=== PATIENT | female | born 1995 | race Caucasian/White ===

== ENCOUNTER 2024-04-16 09:36 | Outpatient (REF) | payer BC, SELFPAY ==
--- OUTSIDE RECORDS SUMMARY | 2024-05-01 09:42 | XMS_ITS | CCD ---
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 [facility] [address] [place] Performed By: #### S YPHR #### [facility] [address] [place] URINE VOLUME 1003 mL Normal [facility] Comment on above: Performed By: #### C RCL #### [facility] [address] [place] Performed By: #### P TPHN #### [facility] [address] [place] Performed By: #### S YPHR #### [facility] [address] [place] COLLECTION PERIOD 24 hr Normal [facility] Comment on above: Performed By: #### C RCL #### [facility] [address] [place] Performed By: #### P TPHN #### [facility] [address] [place] Performed By: #### S YPHR #### [facility] [address] [place] Clinical Ethicson 10-13-2022 Clinical Ethics Active Problems 1. Donor of kidney for transplant (V59.4) (Z52.4) Impression Living donor advocate report: I spoke with Ms. Narayan this afternoon regarding her decision to donate a kidney to her sister. We discussed the following topics: a) evaluation and informed consent process b) knowledge of the surgical procedure, major risks and benefits (immediate and long-term; medical and psycho-social) c) evidence of ability to evaluate risks and benefits to both the recipient and herself d) reasons for choosing to donate e) voluntary nature of the donation and absence of coercion f) follow up requirements, including benefit and need She was also given the following information: a) the confidential nature of the interview b) the commitment of the donor advocate to the rights, interests, and well being of the potential donor c) opportunities for deciding not to donate and assurance of confidentiality if she wishes to withdraw consent d) access to the advocate team following the interview It is my impression that Ms. Narayan is adequately informed; her decision is voluntary. Signatures Electronically signed by : Carlos Cristobal, ; Oct 13 2022 1:01PM EST (Author) Normal [facility] Complete Blood Count + Diffe dara 10-13-2022 Basophils/100 WBC (Bld) 0.3 % 0.0 - 2.0 [facility] Work Phone: [phone] Erythrocyte distribution width (RBC) [Ratio] 12.4 % See Below [facility] [address] Work Phone: Comment on above: Reference Range: 11. 5 - 14.5 Hematocrit (Bld) [Volume fraction] 42.3 % See Below [facility] Work Phone: Comment on above: Reference Range: 36. 0 - 46.0 Hemoglobin (Bld) [Mass/Vol] 13.4 g/dL See Below [facility] [place] [address] Work Phone: Comment on above: Reference Range: 12. 0 - 16.0 Lymphocytes/100 WBC (Bld) 35.2 % See Below [facility] [place] [address] Work Phone: [phone] Comment on above: Reference Range: 13. 0 - 44.0 MCHC (RBC) [Mass/Vol] 31.7 g/dL below low threshold See Below [facility] [place] [address] Work Phone: Comment on above: Reference Range: 32. 0 - 36.0 MCV (RBC) [Entitic vol] 90 fL 80 - 100 [facility] [place] [address] Work Phone: [phone] Monocytes/100 WBC (Bld) 7.6 % 2.0 - 10.0 [facility] Work Phone: [phone] Neutrophils/100 WBC (Bld) 54.5 % See Below [facility] Work Phone: Comment on above: Reference Range: 40. 0 - 80.0 Platelets (Bld) [#/Vol] 289 10*3/uL 150 - 450 [facility] Work Phone: RBC (Bld) [#/Vol] 4.71 {x10E12/L} See Below [facility] Work Phone: [phone] Comment on above: Reference Range: 4.0 0 - 5.20 WBC (Bld) [#/Vol] 7.0 10*3/uL 4.4 - 11.3 [facility] Work Phone: [phone] Complete Blood Count + Differential 0.02 {x10E9/L} See Below [facility] Work Phone: [phone] Comment on above: Reference Range: 0.0 0 - 0.10 Complete Blood Count + Differential 0.16 {x10E9/L} See Below [facility] Work Phone: [phone] Comment on above: Reference Range: 0.0 0 - 0.70 Complete Blood Count + Differential 0.53 {x10E9/L} See Below [facility] Work Phone: [phone] Comment on above: Reference Range: 0.1 0 - 1.00 Complete Blood Count + Differential 2.46 {x10E9/L} See Below [facility] Work Phone: [phone] Comment on above: Reference Range: 1.2 0 - 4.80 Complete Blood Count + Differential 3.80 {x10E9/L} See Below [facility] Work Phone: [phone] Comment on above: Reference Range: 1.2 0 - 7.70 Complete Blood Count + Differential 2.3 % 0.0 - 6.0 [facility] [place] [employer] Work Phone: [phone] Complete Blood Count + Differential 0.1 % 0.0 - 0.9 [facility] [place] [facility] Work Phone: [phone] Comment on above: Immature Granulocyte Count (IG) includes promyelocytes, myelocytes and metamyelocytes but does not include bands. Percent differential counts (%) should be interpreted in the context of the absolute cell counts (cells/L). Complete Blood Count + Differential 0.0 {/100_WBC} 0.0-0.0 [facility] [employer] Work Phone: Creatinine Clearanceon 10-13 Creatinine (U) [Mass or moles/Vol] 87.1 mg/dL See Below [facility] [employer] Work Phone: Comment on above: Reference Range: 20. 0 - 320.0 Creatinine [Mass/Vol] 0.66 mg/dL See Below [facility] [place] [employer] Work Phone: [phone] Comment on above: Reference Range: 0.5 0 - 1.05 Creatinine Clearance 1003 mL [facility] Work Phone: [phone] Creatinine Clearance 24 {hr} [facility] [place] [address] Work Phone: [phone] Creatinine Clearance >90 >90 [facility] [place] [employer] Work Phone: [phone] Comment on above: CALCULATIONS OF PONCHO MATED GFR ARE PERFORMED USING THE 2020 CKD-EPI STUDY REFIT EQUATION WITHOUT THE RACE VARIABLE FOR THE IDMS-TRACEABLE CREATININE METHODS.https://jasn.asnjournals.org/content//ASN .6783105408 Creatinine Clearance 92 mL/min 70 - 125 [facility] [place] [address] Work Phone: DRUG SCREEN,URINE WITH REFLE X TO CONFIRMATIONon 10-13-2022 AMPHETAMINE SCREEN,U Negative Normal NEGATIVE [facility] Comment on above: Result Comment: CUTO FF LEVEL: 500 NG/ML Cross-reactivity has been reported with high concentrations of the following drugs: buproprion, chloroquine, chlorpromazine, ephedrine, mephentermine, fenfluramine, phentermine, phenylpropanolamine, pseudoephedrine, and propranolol. Performed By: #### C MV2 #### [facility] [address] [place] [address] BARBITURATES SCREEN,U Negative Normal NEGATIVE [facility] Comment on above: Result Comment: CUTO FF LEVEL: 200 NG/ML Performed By: #### C MV2 #### [facility] [address] [place] [address] BENZODIAZEPINES SCREEN,U Negative Normal NEGATIVE [facility] Comment on above: Result Comment: CUTO FF LEVEL: 200 NG/ML Performed By: #### C MV2 #### [facility] [address] [place] [address] CANNABINOIDS SCREEN,U Negative Normal NEGATIVE [facility] Comment on above: Result Comment: CUTO FF LEVEL: 50 NG/ML Performed By: #### C MV2 #### [facility] [address] [place] [address] COCAINE METABOLITE SCREEN,U Negative Normal NEGATIVE [facility] Comment on above: Result Comment: CUTO FF LEVEL: 150 NG/ML Performed By: #### C MV2 #### [facility] [address] [place] [address] DRUG SCREEN COMMENT SEE BELOW Normal [facility] Comment on above: Result Comment: Drug screen results are presumptive and should not be used to assess compliance with prescribed medication. Definitive confirmatory drug testing has been added to this sample for any positive screen result and will be reported separately. . Toxicology screening results are reported qualitatively. The concentration must be greater than or equal to the cutoff to be reported as positive. The concentration at which the screening test can detect an individual drug or metabolite varies. The absence of expected drug(s) and/or drug metabolite(s) may indicate non-compliance, inappropriate timing of specimen collection relative to drug administration, poor drug absorption, diluted/adulterated urine, or limitations of testing. For medical purposes only; not valid for forensic use. . Interpretive questions should be directed to the laboratory medical directors. Performed By: #### C MV2 #### [facility] [address] [place] [address] FENTANYL SCREEN,URINE Negative Normal NEGATIVE [facility] Comment on above: Result Comment: CUTO FF LEVEL: 5 NG/ML Performed By: #### C MV2 #### [facility] [address] [place] [address] METHADONE SCREEN,U Negative Normal NEGATIVE [facility] [place] Comment on above: Result Comment: CUTO FF LEVEL: 150 NG/ML The metabolite V-yhtsy-bsmkjabjxwqhwr (LAAM) is not detected by this method in concentrations that would be found in the urine of patients on LAAM therapy. Performed By: #### C MV2 #### [facility] [address] [place] [address] OPIATES SCREEN,U Negative Normal NEGATIVE [facility] [place] Comment on above: Result Comment: CUTO FF LEVEL: 300 NG/ML The opiate screen does not detect fentanyl, meperidine, or tramadol. Oxycodone is not consistently detected (refer to Oxycodone Screen, Urine result). Performed By: #### C MV2 #### [facility] [address] [place] [address] OXYCODONE SCREEN,U Negative Normal NEGATIVE [facility] [place] Comment on above: Result Comment: CUTO FF LEVEL: 100 NG/ML This test will accurately detect both oxycodone and oxymorphone. Performed By: #### C MV2 #### [facility] [address] [place] [address] PCP SCREEN,U Negative Normal NEGATIVE [facility] Comment on above: Result Comment: CUTO FF LEVEL: 25 NG/ML Cross-reactivity has been reported with dextromethorphan. Performed By: #### C MV2 #### [facility] [address] [place] [address] EBV PANELon 10-13-2022 VCA IGM ANTIBODY Negative Normal NEGATIVE [facility] [place] Comment on above: Performed By: #### C MV2 #### [facility] [address] [place] [address] EBV EA-D IGG ANTIBODY Negative Normal NEGATIVE [facility] Comment on above: Performed By: #### C MV2 #### [facility] [address] [place] [address] EBV INTERPRETATION SEE BELOW Normal [facility] [place] Comment on above: Result Comment: . EB V INTERPRETATION CHART . VCA-IGG VCA-IGM NA-IGG EA-IGG . PRIMARY ACUTE +/- +/- - +/- LATE ACUTE + +/- +/- +/- RECOVERING + - - + PREVIOUS INFECTION + - +/- - Performed By: #### C MV2 #### [facility] [address] [place] [address] EBV NA-1 IGG ANTIBODY Negative Normal NEGATIVE [facility] Comment on above: Performed By: #### C MV2 #### [facility] [address] [place] [address] VCA IGG ANTIBODY Negative Normal NEGATIVE [facility] [place] Comment on above: Performed By: #### C MV2 #### [facility] [address] [place] [address] Electrocardiogram 12 Leadon 10-13-2022 Electrocardiogram 12 Lead Ventricular Rate 65 Atrial Rate 65 P-R Interval 164 QRS Duration 78 Q-T Interval 396 QTC Calculation(Bazett) 411 P [place] 50 R [place] 36 T [place] 48 QRS Count 11 Q Onset 222 P Onset 140 P Offset 186 T Offset 420 QTC Fredericia 406 Diagnosis Class Borderline Abnormal Diagnosis Normal sinus rhythm with sinus arrhythmia Low voltage QRS, consider pulmonary disease, pericardial effusion, or normal variant Borderline ECG No previous ECGs available Confirmed by Ishan Iverson ([id number]) on 10/27/2022 1:40:48 PM Normal [facility] GLUCOSE,FASTINGon 10-13-2022 Glucose [Mass/Vol] 80 mg/dL Normal 74 - 99 [facility] [place] Comment on above: Result Comment: INCR EASED RISK FOR DIABETES 100-125 mg/dL DIAGNOSTIC OF DIABETES >=126 mg/dL Diagnosis of diabetes mellitus requires confirmation of an abnormal result by repeat testing. [place] [employer], Diabetes Care; 33(Supp 1), Apr 2009. Performed By: #### G LUCF #### [facility] [address] [place] [address] Glucose, Fastingon 3 Glucose post fast [Mass/Vol] 80 mg/dL 74 - 99 [facility] [place] [address] Work Phone: Comment on above: INCREASED RISK FOR D IABETES 100-125 mg/dL DIAGNOSTIC OF DIABETES >=126 mg/dL Diagnosis of diabetes mellitus requires confirmation of an abnormal result by repeat testing. [place] [employer], Diabetes Care; 33(Supp 1), Apr 2009. HCG, Beta Quantitativeon HCG.beta subunit Qn m[IU]/mL [facility] [place] [address] Work Phone: Comment on above: SOURCE: .Total HCG m easurement is performed using the Siemens Atellicaimmunoassay which detects intact HCG and free beta HCG subunit..This test is not indicated for use as a tumor marker.HCG testing is performed using a different test methodology at [facility] than other [facility]. Direct result comparisonshould only be made within the same method..REF VALUESNON FEMALE <5MALES <5 HCG,BETA-QUANTITATIVEon 09-28 HCG,BETA-QUANTITATIV E <3 Normal [facility] Comment on above: Result Comment: . Total HCG measurement is performed using the Siemens Atellica immunoassay which detects intact HCG and free beta HCG subunit. . This test is not indicated for use as a tumor marker. HCG testing is performed using a different test methodology at [facility] than other [facility]. Direct result comparison should only be made within the same method. . REF VALUES NON FEMALE <5 MALES <5 Performed By: #### P TPHN #### [facility] [address] [place] HEMOGLOBIN A1Con 10-13-2022 Glucose [Mass/Vol] 103 mg/dL Normal [facility] [place] Comment on above: Performed By: #### C MV2 #### [facility] [address] [place] HbA1c (Bld) [Mass fraction] 5.2 % Normal [facility] Comment on above: Result Comment: Diag nosis of Diabetes-Adults Non-Diabetic: < or = 5.6% Increased risk for developing diabetes: 5.7-6.4% Diagnostic of diabetes: > or = 6.5% . Monitoring of Diabetes Age (y) Therapeutic Goal (%) Adults: >18 <7.0 Pediatrics: 13-18 <7.5 7-12 <8.0 0- 6 7.5-8.5 [place] [employer]. Diabetes Care 33(S1), Apr 2009. Performed By: #### C MV2 #### [facility] [address] [place] [address] HEPATITIS B CORE AB-TOTALon 10-13-2022 HEP. B CORE AB-TOTAL Non-Reactive Normal NONREACTIVE [facility] Comment on above: Result Comment: Resu lts from patients taking biotin supplements or receiving high-dose biotin therapy should be interpreted with caution due to possible interference with this test. Providers may contact their local laboratory for further information. Performed By: #### P TPHN #### [facility] [address] [place] [address] HEPATITIS B SURF ABon 2022 HEP B SURF AB <3.1 Normal <10 [facility] Comment on above: Result Comment: INTE RPRETIVE CRITERIA: <10 mIU/mL....NONREACTIVE >=10 mIU/mL...REACTIVE . Biotin interference may cause falsely decreased results. Patients taking a Biotin dose of up to 5 mg/day should refrain from taking Biotin for 24 hours before sample collection. Providers may contact their local laboratory for further information. Performed By: #### S YPHR #### [facility] [address] [place] [address] HEPATITIS B SURFACE AGon HEP.B SURFACE AG Non-Reactive Normal NONREACTIVE [facility] Comment on above: Result Comment: Biot in interference may cause falsely decreased results. Patients taking a Biotin dose of up to 5 mg/day should refrain from taking Biotin for 24 hours before sample collection. Providers may contact their local laboratory for further information. Performed By: #### H BSAG #### [facility] [address] [place] [address] HEPATITIS C ABon 10-13-2022 HEPATITIS C AB Non-Reactive Normal NONREACTIVE [facility] Comment on above: Result Comment: Resu lts from patients taking biotin supplements or receiving high-dose biotin therapy should be interpreted with caution due to possible interference with this test. Providers may contact their local laboratory for further information. Performed By: #### H CVAB #### [facility] [address] [place] [address] HIV 1/2 ANTIGEN/ANTIBODY SCR EEN WITH REFLEX TO CONFIRMATIONon 10-13-2022 HIV 1/2 AG/AB SCREEN Non-Reactive Normal NONREACTIVE [facility] Comment on above: Result Comment: HIV Ag/Ab screen is performed using the Siemens AtellTissuetech HIV Ag/Ab Combo assay which detects the presence of HIV p24 antigen as well as antibodies to HIV-1 (Group M and O) and HIV-2. . No laboratory evidence of HIV infection. If acute HIV infection is suspected, consider testing for HIV RNA by PCR (viral load). Performed By: #### S YPHR #### [facility] [address] [place] [id number] HIV 1+2 Ab Qn (S) Non-Reactive See Below [facility] [place] [address] Work Phone: Comment on above: SOURCE: Reference Ra nge: NONREACTIVE HIV Ag/Ab screen is performed using the Siemens Atellica HIV Ag/Ab Combo assay which detects the presence of HIV p24 antigen as well as antibodies to HIV-1 (Group M and O) and HIV-2..No laboratory evidence of HIV infection. If acute HIV infection is suspected, consider testing for HIV RNA by PCR (viral load). HLA-A,B,C LRon 10-13-2022 HLA-A LOCUS LR TYPE Canceled Normal [facility] Comment on above: Order Comment: TEST HLA-A,B,C LR WAS CANCELLED, 10/13/2022 16:25 ORDERED UNDER INCORRECTVISIT. REORDERED BY LAB UNDER CORRECT VISIT. DO NOT REDRAW. Performed By: #### P TPHN #### [facility] [address] [place] [address] HLA-B LOCUS LR TYPE Canceled Normal [facility] Comment on above: Order Comment: TEST HLA-A,B,C LR WAS CANCELLED, 10/13/2022 16:25 ORDERED UNDER INCORRECTVISIT. REORDERED BY LAB UNDER CORRECT VISIT. DO NOT REDRAW. Performed By: #### P TPHN #### [facility] [address] [place] [id number] HLA-C LOCUS LR TYPE Canceled Normal [facility] Comment on above: Order Comment: TEST HLA-A,B,C LR WAS CANCELLED, 10/13/2022 16:25 ORDERED UNDER INCORRECTVISIT. REORDERED BY LAB UNDER CORRECT VISIT. DO NOT REDRAW. Performed By: #### P TPHN #### [facility] [address] [place] [id number] HLA-DRB1/3/4/5 AND DQB1 LR T YPINGon 10-13-2022 HLA-DRB1/3/4/5 & DQB1 LR TYPING Canceled Normal [facility] Comment on above: Order Comment: TEST HLA-DRB1/3/4/5 AND DQB1 LR TYPING WAS CANCELLED, 10/13/2022 16:25 ORDEREDUNDER INCORRECT VISIT. REORDERED BY LAB UNDER CORRECT VISIT. DO NOT REDRAW. Performed By: #### P TPHN #### [facility] [address] [place] [address] Hemoglobin A1Con 10-13-2022 Glucose [Mass/Vol] 103 mg/dL [facility] [address] Work Phone: HbA1c (Bld) [Mass fraction] 5.2 % [facility] [address] Work Phone: Comment on above: Diagnosis of Diabete s-Adults Non-Diabetic: < or = 5.6% Increased risk for developing diabetes: 5.7-6.4% Diagnostic of diabetes: > or = 6.5%. Monitoring of Diabetes Age (y) Therapeutic Goal (%) Adults: >18 <7.0 Pediatrics: 13-18 <7.5 7-12 <8.0 0- 6 7.5-8.5 [place] [employer]. Diabetes Care 33(S1), Apr 2009. Hepatitis B Core Antibody, T otalon 10-13-2022 Hepatitis B Core Antibody, Total Non-Reactive See Below [facility] [place] [address] Work Phone: Comment on above: SOURCE: Reference Ra nge: NONREACTIVE SOURCE: Reference Ra nge: NONREACTIVE Results from patients taking biotin supplements or receiving high-dose biotin therapy should be interpreted with caution due to possible interference with this test. Providers may contact their local laboratory for further information. SOURCE: Reference Ra nge: NONREACTIVE Biotin interference may cause falsely decreased results. Patients taking a Biotin dose of up to 5 mg/day should refrain from taking Biotin for 24 hours before sample collection. Providers may contact their local laboratory for further information. Hepatitis B Surface Antibody on 10-13-2022 HBV surface Ag IA Ql <3.1 <10 [facility]plan [facility] [place] [address] Work Phone: Comment on above: SOURCE: INTERPRETIVE CRITERIA:<10 mIU/mL....NONREACTIVE >=10 mIU/mL...REACTIVE . Biotin interference may cause falsely decreased results. Patients taking a Biotin dose of up to 5 mg/day should refrain from taking Biotin for 24 hours before sample collection. Providers may contact their local laboratory for further information. Initial Visit (Nephrology)on 10-13-2022 Initial Visit (Nephrology) Provider Impressions After carefully reviewed the history, physical examination and the previous blood tests/urine tests/ imaging studies / EKG and echocardiogram done , the patient has pending tests : [x] medically suitable base on PMH/PSH. No labs available at this time. Will need to complete: - standard requirement for donor evaluation per protocols - Donor advocate, SW/Psyc clearance - Surgery to review the CTA - Case will be discussed at transplant donor selection committee The above recommendations were discussed with the patient at length. In addition, the following were also discussed: - Risks of Kidney donation, both short-term and long-term - The follow up plan after kidney donation - Medications to avoid after nephrectomy. The list of medications were given to the patient. - Advise to avoid high protein shake after nephrectomy The patient expressed understanding of the above and wishes to proceed. I answered all of the questions. I urged the patient to notify transplant center if he becomes ill or develops new medical conditions. I have spent over 45 minutes with the patient . More than 50% of the time was spent in counseling, explaining about the kidney donation and answering the questions. I also reviewed the medical record with the patient, blood test results, imaging and previous studies which were obtained from emergency department. I also order the tests needed to complete the evaluation and I will review the results of those tests. Chief Complaint Patient is here for a kidney donor evaluation History of Present Illness This is a 27 year old W female with no significant past medical conditions who is here today for a kidney donor evaluation. The patient has never been diagnosed with diabetes, high blood pressure, heart disease, stroke, cancer, hepatitis, HIV or kidney disease. She takes ibuprofen prn for headache, but rarely uses it. Patient denied history of kidney stones and urinary tract infection. There is no family history of polycystic kidney disease. Patient stated she is healthy and wishes to donate one of the kidneys to her elder sister ( ESKD due to Ig A nephropathy, bx proven). She sees a primary care doctor routinely. She denied hx of recent hospitalization, or ED visit. PMH/PSH : Surgery - wisdom teeth Hx seizure, one episode at 12 year old . No recurrent episode. Not on anti seizure meds. Patient denied significant past medical and surgical history. Denied hypertension, diabetes, pre diabetes, heart disease and lung disease. No hx of pre-eclampsia. 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 No hx of Medication List None Allergy NKDA Active Problems Donor of kidney for transplant (V59.4) (Z52.4) Current Meds Medication NameInstruction No Reported Medications Physical Exam General appearance - alert, well appearing, and in no distress and acyanotic, in no respiratory distress Mental status - alert, oriented to person, place, and time Eyes - pupils equal and reactive, extraocular eye movements intact Ears - bilateral TM's and external ear canals normal Nose - normal and patent, no erythema, discharge or polyps Mouth - mucous membranes moist, pharynx normal without lesions Neck - supple, no significant adenopathy Lymphatics - no palpable lymphadenopathy, no hepatosplenomegaly Chest - clear to auscultation, no wheezes, rales or rhonchi, symmetric air entry Heart - normal rate, regular rhythm, normal S1, S2, no murmurs, rubs, clicks or gallops Abdomen - soft, nontender, nondistended, no masses or organomegaly Neurological - alert, oriented, normal speech, no focal findings or movement disorder noted Musculoskeletal - no joint tenderness, deformity or swelling Extremities - peripheral pulses normal, no pedal edema, no clubbing or cyanosis Skin - normal coloration and turgor, no rashes, no suspicious skin lesions noted Signatures Electronically signed by : Jose Luis Mack MD; Oct 13 2022 11:58AM EST (Author) Normal [employer] LIPID PANEL (CORONARY RISK 2 )on 10-13-2022 Cholesterol [Mass/Vol] 163 mg/dL Normal 0 - 199 [facility] Comment on above: Result Comment: . AGE DESIRABLE BORDERLINE HIGH HIGH 0-19 Y 0 - 169 170 - 199 >/= 200 20-24 Y 0 - 189 190 - 224 >/= 225 >24 Y 0 - 199 200 - 239 >/= 240 All ranges are based on fasting samples. Specific therapeutic targets will vary based on patient-specific cardiac risk. . Pediatric guidelines reference:Pediatrics 2011, 128(S5). Adult guidelines reference: NCEP ATPIII Guidelines, BRETT 2001, 258:2486-97 . Venipuncture immediately after or during the administration of Metamizole may lead to falsely low results. Testing should be performed immediately prior to Metamizole dosing. Performed By: #### C MV2 #### [facility] [address] [place] [address] Cholesterol in HDL [Mass/Vol] 57.9 mg/dL Normal [facility] Comment on above: Result Comment: . AGE VERY LOW LOW NORMAL HIGH 0-19 Y < 35 < 40 40-45 ---- 20-24 Y ---- < 40 >45 ---- >24 Y ---- < 40 40-60 >60 . Performed By: #### C MV2 #### [facility] [address] [place] [address] Cholesterol in LDL [Mass/Vol] 90 mg/dL Normal 0 - 119 [facility] Comment on above: Result Comment: . NEAR BORD AGE DESIRABLE OPTIMAL HIGH HIGH VERY HIGH 0-19 Y 0 - 109 --- 110-129 >/= 130 ---- 20-24 Y 0 - 119 --- 120-159 >/= 160 ---- >24 Y 0 - 99 100-129 130-159 160-189 >/=190 . Performed By: #### C MV2 #### [facility] [address] [place] [address] Cholesterol in VLDL [Mass/Vol] 15 mg/dL Normal 0 - 40 [facility] Comment on above: Performed By: #### C MV2 #### [facility] [address] [place] [address] Cholesterol.total/Ch olesterol in HDL [Mass ratio] 2.8 {ratio} Normal [facility] Comment on above: Result Comment: REF VALUES DESIRABLE < 3.4 HIGH RISK > 5.0 Performed By: #### C MV2 #### [facility] [address] [place] [address] Triglyceride [Mass/Vol] 74 mg/dL Normal 0 - 149 [facility] Comment on above: Result Comment: . AGE DESIRABLE BORDERLINE HIGH HIGH VERY HIGH 0 D-90 D 19 - 174 ---- ---- ---- 91 D- 9 Y 0 - 74 75 - 99 >/= 100 ---- 10-19 Y 0 - 89 90 - 129 >/= 130 ---- 20-24 Y 0 - 114 115 - 149 >/= 150 ---- >24 Y 0 - 149 150 - 199 200- 499 >/= 500 . Venipuncture immediately after or during the administration of Metamizole may lead to falsely low results. Testing should be performed immediately prior to Metamizole dosing. Performed By: #### C MV2 #### [facility] [address] [place] [address] Laboratory - Chemistry and C hemistry - challengeon 10-13-2022 Albumin (24H U) [Mass/Vol] <7 <30 [facility] 1800 Work Phone: Albumin (24H U) [Mass/Vol] <7.0 See Below [facility] Work Phone: Comment on above: Reference Range: Not Established Albumin BCP dye [Mass/Vol] 4.3 g/dL 3.4 - 5.0 [facility] Work Phone: [phone] Albumin Ql (U) <7.0 See Below [facility] Work Phone: [phone] Comment on above: Reference Range: Not Established Albumin/Creatinine DL <= 20 mg/L (U) [Mass ratio] SEE COMMENT 0.0 - 30.0 [facility] Work Phone: Comment on above: One or more analytes used in this calculation is outside of the analytical measurement range.Calculation cannot be performed. ALP [Catalytic activity/Vol] 60 U/L 33 - 110 [facility] Work Phone: [phone] ALT With P-5'-P [Catalytic activity/Vol] 12 U/L 7 - 45 [facility] Work Phone: [phone] Comment on above: Patients treated wit h Sulfasalazine may generate falsely decreased results for ALT. Anion gap [Moles/Vol] 13 mmol/L 10 - 20 [facility] Work Phone: [phone] AST With P-5'-P [Catalytic activity/Vol] 15 U/L 9 - 39 [facility] Work Phone: [phone] Bilirubin [Mass/Vol] 0.7 mg/dL 0.0 - 1.2 [facility] Work Phone: [phone] Calcium [Mass/Vol] 9.4 mg/dL 8.6 - 10.6 [facility] Work Phone: [phone] Chloride [Moles/Vol] 106 mmol/L 98 - 107 [facility] Work Phone: [phone] CO2 [Moles/Vol] 28 mmol/L 21 - 32 [facility] Work Phone: Cystatin C [Mass/Vol] 0.74 mg/L See Below [facility] Work Phone: Comment on above: Reference Range: 0.6 3 - 1.03Test Performed by:[address] [id number] Director: Alen Penny M.D. Ph.D.; IA# [id number] GFR/1.73 sq M.predicted Cystatin-based formula (S/P/Bld) [Vol rate/Area] 117 {mL/min/BSA} >60 [facility] Work Phone: Comment on above: Estimated GFR calcul ated using the CKD-EPI Cystatin C (2012) equation. ADDITIONAL INFORMATION Cystatin C-based eGFR may differ substantially from creatinine-based eGFR in patients with abnormal muscle mass or acutely changing renal function. Please interpret together with relevant clinical features. On 09/23/2020 the cystatin C assay method changed. Cystatin C eGFR results > 50 ml/min/1.73m2 are approximately 10% lower with the new assay. Glucose [Mass/Vol] 89 mg/dL 74 - 99 [facility] Work Phone: Potassium [Moles/Vol] 4.6 mmol/L 3.5 - 5.3 [facility] Work Phone: Protein (24H U) [Mass/Vol] 80 {mg/24h} 0 - 149 [facility] Work Phone: Protein [Mass/Vol] 6.7 g/dL 6.4 - 8.2 [facility] Work Phone: Sodium [Moles/Vol] 142 mmol/L 136 - 145 [facility] Work Phone: Urea nitrogen [Mass/Vol] 10 mg/dL 6 - 23 [facility] Work Phone: Laboratory - Coagulationon 0 10-13-2022 aPTT Coag (PPP) [Time] 38 s 26 - 39 [facility] Work Phone: Comment on above: THE APTT IS NO LONGE R USED FOR MONITORING UNFRACTIONATED HEPARIN THERAPY. FOR MONITORING HEPARIN THERAPY, USE THE HEPARIN ASSAY. INR Coag (PPP) [Relative time] 1.0 {INR} 0.9 - 1.1 [facility] Work Phone: PT Coag (PPP) [Time] 11.7 s 9.8 - 13.4 [facility] Work Phone: Laboratory - Drug toxicology on 10-13-2022 Amphetamines Screen Ql (U) Negative NEGATIVE [facility] Work Phone: Comment on above: CUTOFF LEVEL: 500 NG /ML Cross-reactivity has been reported with high concentrations of the following drugs: buproprion, chloroquine, chlorpromazine, ephedrine, mephentermine, fenfluramine, phentermine, phenylpropanolamine, pseudoephedrine, and propranolol. Barbiturates Screen Ql (U) Negative NEGATIVE [facility] Work Phone: Comment on above: CUTOFF LEVEL: 200 NG /ML Benzodiazepines Ql (U) Negative NEGATIVE [facility] Work Phone: Comment on above: CUTOFF LEVEL: 200 NG /ML Benzoylecgonine Screen Ql (U) Negative NEGATIVE [facility] Work Phone: Comment on above: CUTOFF LEVEL: 150 NG /ML Cannabinoids Screen Ql (U) Negative NEGATIVE [facility] Work Phone: Comment on above: CUTOFF LEVEL: 50 NG/ ML Methadone Screen Ql (U) Negative NEGATIVE [facility] Work Phone: Comment on above: CUTOFF LEVEL: 150 NG /ML The metabolite L-bnqjp-jphjlkahafwjfc (LAAM) is not detected by this method in concentrations that would be found in the urine of patients on LAAM therapy. Opiates Screen Ql (U) Negative NEGATIVE [facility] Work Phone: Comment on above: CUTOFF LEVEL: 300 NG /ML The opiate screen does not detect fentanyl, meperidine, or tramadol. Oxycodone is not consistently detected (refer to Oxycodone Screen, Urine result). oxyCODONE+oxyMORphon e Screen Ql (U) Negative NEGATIVE [facility] Work Phone: Comment on above: CUTOFF LEVEL: 100 NG /ML This test will accurately detect both oxycodone and oxymorphone. Phencyclidine Ql (U) Negative NEGATIVE [facility] Work Phone: Comment on above: CUTOFF LEVEL: 25 NG/ ML Cross-reactivity has been reported with dextromethorphan. Laboratory - HLA antigenson 10-13-2022 HLA-A locus Nom (Bld/Tiss) SEE COMMENT [facility] [place] Work Phone: [phone] Comment on above: HLA-A LOCUS, LOW RES OLUTION TYPE SEE SEPARATE REPORT. HLA-B locus Nom (Bld/Tiss) SEE COMMENT [facility] [place] Work Phone: [phone] Comment on above: HLA-B LOCUS, LOW RES OLUTION TYPE SEE SEPARATE REPORT. HLA-C locus Nom (Bld/Tiss) SEE COMMENT [facility] [place] Work Phone: [phone] Comment on above: HLA-C LOCUS, LOW RES OLUTION TYPE SEE SEPARATE REPORT.Test performed at [facility] Histocompatibility and Immunogenetics Laboratory [facility], [address] [place] [address] HLA-DP2 Ql (Bld/Tiss) SEE COMMENT [facility] [place] Work Phone: [phone] Comment on above: HLA-DPB1 HIGH RESOLU TION TYPING SEE SEPARATE REPORT.Test performed at [facility]ocompatibility and Immunogenetics Laboratory [facility], 6th Floor [address] [place] [address] HLA-DQB1 High resolution Nom (Bld/Tiss) SEE COMMENT -[facility] [place] Work Phone: [phone] Comment on above: HLA-DQB1 HIGH RESOLU TION TYPING SEE SEPARATE REPORT.Test performed at [facility]ocompat[facility] and Immunogenetics Laboratory [facility], [address]th [address] [address] [place] [address] HLA-DR+DQ Nom (Bld/Tiss) SEE COMMENT -[facility] [place] Work Phone: [phone] Comment on above: HLA-DRB1/3/4/5 & DQB 1 LOW RESOLUTION TYPING SEE SEPARATE REPORT.Test performed at [facility] [address] [place] [address] HLA-A locus Nom (Bld/Tiss) Canceled [facility] [place] [facility] Work Phone: [phone] HLA-B locus Nom (Bld/Tiss) Canceled [facility] [place] [facility] Work Phone: [phone] HLA-C locus Nom (Bld/Tiss) Canceled [facility] [place] 1800 Work Phone: [phone] HLA-DR+DQ Nom (Bld/Tiss) Canceled [facility] [place] [facility] Work Phone: [phone] Laboratory - Microbiology an d Antimicrobial susceptibilityon 10-13-2022 EBV capsid IgG IA Qn (S) Negative NEGATIVE [facility] [place] 1600 Work Phone: [phone] EBV capsid IgM IA Qn (S) Negative NEGATIVE [facility] [place] [address] Work Phone: [phone] EBV early IgM IA Qn (S) Negative NEGATIVE [facility] [place] 1600 Work Phone: [phone] EBV nuclear IgG IA Qn (S) Negative NEGATIVE [facility] [place] 1600 Work Phone: West Nile virus IgG IA Qn (S) <1.30 [facility] [place] [address] Work Phone: [phone] West Nile virus IgM IA Qn (S) <0.90 [facility] [place] [address] Work Phone: Comment on above: REFERENCE RANGE: IgG <1.30 IgM <0.90Interpretive Criteria: IgG: <1.30 Antibody not detected 1.30 - 1.49 Equivocal >1.49 Antibody detected .West Nile IgG antibodies are often not detectable untilday 4 or 5 of illness. In a patient who is IgM positivebut IgG negative, a convalescent phase specimen obtained7-14 days after the initial specimen should be tested todocument IgG seroconversion.Interpretive Criteria: IgM: <0.90 Antibody not detected 0.90 - 1.10 Equivocal >1.10 Antibody detected.West Nile virus (WNV) IgM is usually detectable inserum specimens from WNV-infected patients at the timeof clinical presentation. Because serum IgM antibody maypersist for more than a year in some patients, its presencemay indicate WNV infection in the previous year and beunrelated to the current clinical presentation.Antibodies induced by other flavivirus infections(e.g. Dengue virus, Watonwan encephalitis virus) mayshow cross-reactivity with WNV. Laboratory - Urinalysison Protein (U) [Mass/Vol] 8 mg/dL See Below [facility] Work Phone: Comment on above: Reference Range: Not Established Lipid Panelon 10-13-2022 Cholesterol [Mass/Vol] 163 mg/dL 0 - 199 [facility] 1800 Work Phone: Comment on above: . AGE DESIRABLE BORD JERAMY HIGH HIGH 0-19 Y 0 - 169 170 - 199 >/= 200 20-24 Y 0 - 189 190 - 224 >/= 225 >24 Y 0 - 199 200 - 239 >/= 240 All ranges are based on fasting samples. Specific therapeutic targets will vary based on patient-specific cardiac risk.. Pediatric guidelines reference:Pediatrics 2011, 128(S5). Adult guidelines reference: NCEP ATPIII Guidelines, BRETT 2001, 258:2486-97. Venipuncture immediately after or during the administration of Metamizole may lead to falsely low results. Testing should be performed immediately prior to Metamizole dosing. Cholesterol in HDL [Mass/Vol] 57.9 mg/dL [facility] Work Phone: Comment on above: . AGE VERY LOW LOW N ORMAL HIGH 0-19 Y < 35 < 40 40-45 ---- 20- 24 Y ---- < 40 >45 ---- >24 Y ---- < 40 40-60 >60. Cholesterol in LDL [Mass/Vol] 90 mg/dL 0 - 119 [facility] Work Phone: Comment on above: . NEAR BORD AGE ESTRELLITA RABLE OPTIMAL HIGH HIGH VERY HIGH 0-19 Y 0 - 109 --- 110-129 >/= 130 ---- 20-24 Y 0 - 119 --- 120-159 >/= 160 ---- >24 Y 0 - 99 100-129 130-159 160-189 >/=190. Cholesterol.total/Ch olesterol in HDL [Mass ratio] 2.8 {ratio} [facility] Work Phone: Comment on above: REF VALUESDESIRABLE < 3.4HIGH RISK > 5.0 Triglyceride [Mass/Vol] 74 mg/dL 0 - 149 [facility] Work Phone: Comment on above: . AGE DESIRABLE BORD JERAMY HIGH HIGH VERY HIGH 0 D-90 D 19 - 174 ---- ---- ----91 D- 9 Y 0 - 74 75 - 99 >/= 100 ---- 10-19 Y 0 - 89 90 - 129 >/= 130 ---- 20-24 Y 0 - 114 115 - 149 >/= 150 ---- >24 Y 0 - 149 150 - 199 200- 499 >/= 500. Venipuncture immediately after or during the administration of Metamizole may lead to falsely low results. Testing should be performed immediately prior to Metamizole dosing. Lipid Panel 15 mg/dL 0 - 40 [facility] [place] [facility] Work Phone: No Panel Informationon 10-13 [email or web address]?PatientID=[email or web address] [id number]&Date= 3&Time=[email or web address]%3a 00&TestType=ECG&Site=1 &OutputType=PDF&Ext=PD F [facility] [place] Work Phone: Normal sinus rhythm with sinus arrhythmia [facility] [place] Work Phone: Borderline Abnormal [facility] [place] Work Phone: [phone] [facility] [place] Work Phone: [phone] [facility] [place] Work Phone: [phone] [facility] [place] Work Phone: [phone] [facility] [place] Work Phone: [phone] [facility] [place] Work Phone: [phone] [facility] [place] Work Phone: [phone] [facility] [place] Work Phone: [phone] [facility] [place] Work Phone: [phone] [facility] [place] Work Phone: [phone] [facility] [place] Work Phone: [phone] [facility] [place] Work Phone: [phone] [facility] [place] Work Phone: [phone] [facility] [place] Work Phone: [phone] [facility] [place] Work Phone: [phone] {g/24h} See Below [facility] [facility] Work Phone: Comment on above: Reference Range: 0.6 7 - 1.59 SEE BELOW [facility] [place] [facility] Work Phone: Comment on above: Drug screen results are presumptive and should not be used to assess compliance with prescribed medication. Definitive confirmatory drug testing has been added to this sample for any positive screen result and will be reported separately. .Toxicology screening results are reported qualitatively. The concentration must be greater than or equal to the cutoff to be reported as positive. The concentration at which the screening test can detect an individual drug or metabolite varies. The absence of expected drug(s) and/or drug metabolite(s) may indicate non-compliance, inappropriate timing of specimen collection relative to drug administration, poor drug absorption, diluted/adulterated urine, or limitations of testing. For medical purposes only; not valid for forensic use. .Interpretive questions should be directed to the laboratory medical directors. . EBV INTERPRETATION CHART. VCA-IGG VCA-IGM NA-IGG EA-IGG. PRIMARY ACUTE +/- +/- - +/-LATE ACUTE + +/- +/- +/-RECOVERING + - - +PREVIOUS INFECTION + - +/- - SEE COMMENT [facility] [place] [address] Work Phone: Comment on above: A1 PHENOTYPE= NEGATI VE Office VIsit (Pre-Transplant Surgery)on 10-13-2022 Follow-up visit Diagnosis/Problems Assessed Donor of kidney for transplant (V59.4) (Z52.4) Provider Impressions 27-year-old female who is interested in donating one of her kidneys to her sister who is currently predialysis. She presents as a reasonable candidate to undergo evaluation and consideration for donor nephrectomy. Chief Complaint Evaluation for donation of a kidney Adult Risk Screening There are no spiritual/cultural practices/values/needs that are important to know Initial Fall Risk Screening: VEDA has not fallen in the last 6 months. Her fall did not result in injury. VEDA does not have a fear of falling. She does not need assistance with sitting, standing or walking. Does not need assistance walking in her home. She does not need assistance in an unfamiliar setting. The patient is not using an assistive device. Pain Scale: On a scale of 0 to 10, the patient rates the pain at 0. Tobacco Screening: VEDA does not use tobacco. Domestic Violence Screen: Does not feel threatened or abused physically, emotionally or sexually. Do you feel UNSAFE? The patient feels safe in the home. Depression/Suicide Screening: During the past 2 weeks, the patient has not felt down, depressed or hopeless. During the past 2 weeks, the patient felt little interest or pleasure in doing things. She does not have a risk of suicide. She has not had thoughts of harming others. Single alcohol screening question: Patient Declined/Screening not indicated. Single substance abuse screening question: Patient Declined/Screening not indicated. Nutrition Screening: In the past month, there was not a day when I or anyone in my family went hungry because there was not enough food. Patient Education: The patient denies that they or the person with them has problems with hearing, speaking, seeing, moving around or learning The patient is comfortable filling out medical forms. Food Insecurity: 1. Within the past 12 months, you worried that your food would run out before you got money to buy more: No 2. Within the past 12 months, the food you bought just didn't last and you didn't have money to get more: No History of Present Illness History of Present Illness Comments: 27-year-old female who is otherwise healthy who is interested in donating one of her kidneys to her sister. She is one of the 3 siblings who are getting evaluated for donation of their kidney to the same recipient. She does not have any personal history of diabetes, hypertension or heart disease. She denies any history of kidney problems including no kidney biopsy, no hematuria, no kidney stones, no urinary tract infections. She hydrates herself well. She does not have any problems with her urine output. In terms of the medical history, she had a single seizure episode at 12 years of age. No sequelae from that and on no maintenance medications. She has not had any prior abdominal surgeries. Her BMI is 28.7. Her family history is consistent with high blood pressure in her mom. There is no diabetes or heart disease in the family. 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 Alcohol consumption is about 3 drinks on the weekend. She denies any drug or tobacco use. She is fairly physically active. Active Problems Problems Donor of kidney for transplant (V59.4) (Z52.4) Allergies NonMedication Bee sting Recorded By: Stacey Lundy; 10/13/2022 10:14:53 AM Current Meds Medication NameInstruction No Reported Medications Vitals Vital Signs Recorded: 13Oct2022 09:17AM Itgyrtulhaf78.2 F, Temporal Heart Rate58 Ttabuuom475 Irhxknezy42 Height5 ft 3 in Icunav230 lb 1.6 oz BMI Nxtcbwurgc13.72 kg/m2 BSA Calculated1.77 Tobacco Useb) No Falls Screening (Age 18+)a) No falls within the last year O2 Iucfwkchts31, RA Pain Scale0 Physical Exam Looks well. Well developed. Eyes - no scleral icterus H+N - no lymphadenopathy Resp - normal effort, normal breath sounds CVS - normal rate rhythm, S1 S2 Abdo - soft, non tender, non distended, no hernias Skin - no surgical scars Extrem - no swelling bilaterally LE Neuro - grossly intact psych - normal mood/affect Signatures Electronically signed by : Autumn Villa MD; Oct 14 2022 4:34PM EST (Author) Normal [facility] PATIENT PHENOTYPEon 10-14-19 PATIENT PHENOTYPE SEE COMMENT Normal [facility], [place], operated [facility] Comment on above: Result Comment: A1 P HENOTYPE= NEGATIVE Performed By: #### P TPHN #### [facility] [address] [place] [address] PHOSPHORUSon 10-13-2022 Phosphate [Mass/Vol] 3.9 mg/dL Normal 2.5 - 4.9 [facility] Comment on above: Result Comment: The performance characteristics of phosphorus testing in heparinized plasma have been validated by the individual laboratory site where testing is performed. Testing on heparinized plasma is not approved by the FDA; however, such approval is not necessary. Performed By: #### C MV2 #### [facility] [address] [place] [address] Phosphorus, Serumon 10-14-19 Phosphate [Mass/Vol] 3.9 mg/dL 2.5 - 4.9 MG-T ransplan t-[facility] [employer] [facility] [address] Work Phone: Comment on above: The performance alonzo acteristics of phosphorus testing in heparinized plasma have been validated by the individual laboratory site where testing is performed. Testing on heparinized plasma is not approved by the FDA; however, such approval is not necessary. Radiologyon 10-13-2022 XR Chest 2 Views Please click on the link to view the study images Normal [facility]Transplan t-[facility] [employer] [facility] Work Phone: XR Chest 2 Views Normal [facility]-Trans plan t-[facility] Work Phone: SYPHILIS SCREENING WITH REFL EXon 10-13-2022 SYPHILIS TOTAL AB Non-Reactive Normal NONREACTIVE [facility] Comment on above: Result Comment: No s erologic evidence of syphilis infection. If recent exposure is suspected, repeat syphilis testing is recommended in 2 to 4 weeks. Performed By: #### S YPHR #### [facility] [address] [place] [id number] Lab Specimen Source Normal [facility] Comment on above: Performed By: #### S YPHR #### [facility] [address] [place] [address] Performed By: #### C MV2 #### [facility] [address] [place] [address] Performed By: #### H BSAG #### [facility] [address] [place] [address] Performed By: #### H CVAB #### [facility] [address] [place] [address] Performed By: #### P TPHN #### [place] [address] [place] T. pallidum IgG+IgM IA Ql (S) Non-Reactive See Below [facility]-Nephrolog y-[facility] [address] Work Phone: Comment on above: SOURCE: Reference Ra nge: NONREACTIVENo serologic evidence of syphilis infection.If recent exposure is suspected, repeat syphilis testingis recommended in 2 to 4 weeks. T-SPOT. TBon 10-13-2022 T-SPOT. TB Passed [facility]-Nephrolog y-[facility] [address] Work Phone: T-SPOT. TB 1 1 [facility]Nephrolog y-[facility] [address] Work Phone: T-SPOT. TB 0 1 [facility]Nephrolog y-[facility] [address] Work Phone: TH CHEST 2 VIEW PA AND LATon 10-13-2022 TH CHEST 2 VIEW PA AND LAT Patient Name: VEDA NARAYAN STUDY: TH CHEST 2 VIEW PA AND LAT; 10/13/2022 9:56 am INDICATION: living donor eval Z52.4: Donor of kidney for transplant. COMPARISON: None. ACCESSION NUMBER(S): [id number] ORDERING CLINICIAN: EL COHN FINDINGS: CARDIOMEDIASTINAL SILHOUETTE: Cardiomediastinal silhouette is normal in size and configuration. LUNGS: Lungs are clear. ABDOMEN: No remarkable upper abdominal findings. BONES: No acute osseous changes. IMPRESSION: 1. No evidence of acute cardiopulmonary process. Electronically signed by: Tran CISNEROS MD Normal [facility] TOTAL PROTEIN, URINE SPOTon 10-13-2022 CREATININE,URINE 72.9 mg/dL Normal 20.0 - 320.0 [facility], [place], operated [facility] Comment on above: Performed By: #### T PS2 #### [facility] [address] [place] [address] Performed By: #### P TPHN #### [facility] [address] [place] [address] T. PROTEIN/CREAT RATIO 0.05 mg/mg Creat Normal 0.00 - 0.17 [facility] Comment on above: Performed By: #### T PS2 #### [facility] [address] [place] [address] TOTAL PROT,URINE SPOT 4 mg/dL Low 5 - 24 [facility] Comment on above: Performed By: #### T PS2 #### [facility] [address] [place] [address] TOTAL PROTEIN,URINE 24Hon CREATININE, 24HR 0.87 g/24h Normal 0.67 - 1.59 [facility] Comment on above: Performed By: #### P TPHN #### [facility] [address] [place] [address] Performed By: #### S YPHR #### [place] [address] [place] [address] Protein (U) [Mass/Vol] 8 mg/dL Normal Not Established [facility] Comment on above: Performed By: #### P TPHN #### [facility] [address] [place] [address] TOTAL PROTEIN,24HR 80 mg/24h Normal 0 - 149 [facility] [place] Comment on above: Performed By: #### P TPHN #### [facility] [address] [place] [address] Tobacco Screening.on 023 Fall risk assessment a) No falls within the last year [facility] Work Phone: Tobacco use status [facility] b) No [facility] Work Phone: Total Protein, Urine Spoton 10-13-2022 Creatinine (U) [Mass/Vol] 72.9 mg/dL See Below [facility] Work Phone: Comment on above: Reference Range: 20. 0 - 320.0 Protein (U) [Mass/Vol] 4 mg/dL below low threshold 5 - 24 [facility] Work Phone: Protein/Creatinine (U) [Ratio] 0.05 {mg/mg_Creat} See Below [facility] Work Phone: Comment on above: Reference Range: 0.0 0 - 0.17 Transplant SW Living Donor A ssessmenton 10-13-2022 Transplant SW Living Donor Assessment Assessment Visit Type: This is the initial visit for the patient. Accompanied by: Pt was seen alone. Organ for Donation: Kidney. Relationship to Recipient: genetic. Describe Relationship with Recipient: Sister, Suze. How was donor identified? Pt offered to donate. The recipient is aware of my offer. Yes, there are other potential donors. Donor is aware they can change their mind at any time. Donor is aware the reason for the change of mind will be kept confidential. Organ donation is of donor's own free will. Their decision is free of inducement, coercion or other external pressures. Donor is not receiving anything in exchange for their organ. Primary motivation to be a donor: I don?t want my sister to . . Has patient been persuaded or dissuaded in any way? no. How will donation impact your relationship? I don?t think it will impact it in any way. Prior altruistic behaviors: none. Donor's process for making important decisions Pt shared she talks to loved ones about it. Patient's thought process seems to be: adequate. Patient's insight presents as: adequate PCP: Dr. Salcedo. Date of Last Physical: Unknown. How Often? Unknown. Current Health: Fair. Current Meds/Supplement Use: None. Past Surgical Experience [place] teeth. Assessment of increased risk for CDC high disease transmission done. Knowledge of Recipient's Health: Poor. Do you know why the recipient has end stage organ disease? I actually don?t know. . Knowledge of alternative treatments for recipient? no. Are they on dialysis? no. Patient believes the recipient is compliant with their health and will be able to care for the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 Condition Age at Onset Recorded Date/T chu mother Hypertension Unknown Advance Directives Advance Directive Response Recorded Date/ Time Advance Directives No December 1:28pm Chief Complaint * AccompaniedBy_UH: * PsychChiefComplaintFreeTextNoteForm_UH: Chief Complaint and Reason for Visit Chief Complaint knee pain Additional Source Comments INFORMATION SOURCE (unrecogn ized section and content) DATE CREATED AUTHOR 10/24/2017 [facility] DATE CREATED AUTHOR AUTHOR'S ORGANIZ ATION 10/17/2022 [facility] DATE CREATED AUTHOR AUTHOR'S ORGANIZ ATION 10/21/2022 [employer] DATE CREATED AUTHOR AUTHOR'S ORGANIZ ATION 11/24/2022 [facility] [place] DATE CREATED AUTHOR AUTHOR'S ORGANIZ ATION 04/19/2024 [facility] EPIC DATE CREATED AUTHOR AUTHOR'S ORGANIZ ATION 04/20/2024 [facility] REASON FOR VISIT (unrecogniz ed section and content) Reason Comments Follow-up Infected belly butto n Reason Comments Follow-up 6 wKnee pain Reason Comments Follow-up Mole ocheck possible removal Reason Comments Follow-up Shave biopsy Reason Comments Knee Pain Pain/swelling in rig ht knee Care Teams (unrecognized sec tion and content) Data Warehouse Manager Relationship Specialty Start Date End Date Pablo Salcedo MD [address] [place] [address] PCP - General Family Medicine 06/08/23 Data Warehouse Manager Relationship Specialty Start Date End Date Pablo Salcedo MD [address] [place] [address] PCP - General Family Medicine 06/08/23 Team Status: Active Member Role Status Dates Pablo Salcedo MD Primary Care Provider Active Team Status: Inactive Member Role Status Dates Pablo Salcedo MD Primary Care Provider Active S tart: January 05, 2024 End: January 05, 2024 Nelly Kumar APRN Attending Provider Active Start: January 05, 2024 End: January 05, 2024 Team Status: Active Member Role Status Dates Pablo Salcedo MD Primary Care Provider Active S tart: January 05, 2024 Nelly Kumar APRN Attending Provider Active Start: January 05, 2024 Data Warehouse Manager Relationship Specialty Start Date End Date Pablo Salcedo MD [address] [place] [address] PCP - General Family Medicine 06/08/23 Pablo Salcedo MD [address] [place] [address] PCP [facility] 07/30/23 Data Warehouse Manager Relationship Specialty Start Date End Date Pablo Salcedo MD [address] [place] [address] PCP - General Family Medicine 06/08/23 Pablo Salcedo MD [address] [place] [address] PCP - [employer] 07/30/23 Data Warehouse Manager Relationship Specialty Start Date End Date Pablo Salcedo MD [address] [place] [address] PCP - General Family Medicine 06/08/23 Pablo Salcedo MD [address] [place] [address] PCP - [employer] 07/30/23 Data Warehouse Manager Relationship Specialty Start Date End Date Pablo Salcedo MD [address] [place] [address] PCP - General Family Medicine 06/08/23 Pablo Salcedo MD [address] [place] [address] PCP - [employer] 07/30/23 Data Warehouse Manager Relationship Specialty Start Date End Date Pablo Salcedo MD [address] [place] [address] PCP - General Family Medicine 06/08/23 Pablo Salcedo MD [address] [place] [address] PCP - [employer] 07/30/23 Data Warehouse Manager Relationship Specialty Start Date End Date Pablo Salcedo MD [address] [place] [address] [facility] 06/08/23 Pablo Salcedo MD [address] [place] [address] [facility] 07/30/23 Data Warehouse Manager Relationship Specialty Start Date End Date Pablo Salcedo MD [address] [place] [address] [facility] 06/08/23 Pablo Salcedo MD [address] [place] [address] [facility] 07/30/23 Data Warehouse Manager Relationship Specialty Start Date End Date Pablo Salcedo MD [address] [place] [address] [facility] 06/08/23 Pablo Salcedo MD [address] [place] [address] [facility] 07/30/23 Goals (unrecognized section and content) Goals may be documented in a n alternate section FOR RECORDS PERTAINING TO PATIENTS WHO ARE OR HAVE BEEN ENROLLED IN A CHEMICAL DEPENDENCY/SUBSTANCEABUSE PROGRAM, SOME INFORMATION MAY BE OMITTED. This clinical summary was aggregated from multiple sources. Caution should be exercised in using it in the provision of clinical care. This summary normalizes information from multiple sources, and as a consequence, information in this document may materially change the coding, format and clinical context of patient data. In addition, data may be omitted in some cases. CLINICAL DECISIONS SHOULD BE BASED ON THE PRIMARY CLINICAL RECORDS. [employer]. provides no warranty or guarantee of the accuracy or completeness of information in this document.
== END 2024-04-16 09:37 | disposition home or self-care (01) ==
LOC: LAB 09:36
PROVIDERS: PCP Family Medicine; Visit Provider Family Medicine
DX: D22.5 Melanocytic nevi of trunk (principal)

== ENCOUNTER 2024-04-17 14:25 | Outpatient (OUT) | payer BC, SELFPAY ==
--- NOTE | 2024-04-17 14:39 | MR_ITS ---
[facility] [id number] Patient Name: BASSEM MACK MRN: [id number] date: 1995 Sex: F Assigned Patient Location: MRI Current Patient Location: MRI Accession/Order Number: [id number] Exam Date: 04/17/2024 15:10 Report Date: 04/18/2024 14:57 At the request of: KEYA SALCEDO Procedure: MR knee RT wo con MR knee RT wo con History: Chronic Pain Of Right Knee. Comparison: None. TECHNIQUE: Multiplanar multisequence MRI of the knee was obtained. No intravenous or intra-articular contrast was administered before the examination. FINDINGS: Alignment: The tibial tuberosity trochlear groove distance is within normal limits. There is no evidence of subluxation. MEDIAL MENISCUS: No evidence of tear per the MRI criteria. LATERAL MENISCUS: No evidence of tear per the MRI criteria. ANTERIOR CRUCIATE LIGAMENT: Intact. POSTERIOR CRUCIATE LIGAMENT: Intact. MEDIAL COLLATERAL LIGAMENT: It is intact. LATERAL COLLATERAL LIGAMENT COMPLEX: There is mild tendinosis of the biceps femoris tendon. Mild thickening is seen at the fibular collateral ligament as well as the IT band. EXTENSOR TENDONS: The extensor tendons are intact. There is no significant tendinosis or tear. BONE MARROW: No marrow signal abnormality is identified to suggest the presence of a fracture, contusion, bone infarct, or diffuse infiltrative process of the knee. CARTILAGE: PATELLOFEMORAL: It is intact. MEDIAL COMPARTMENT: There is evidence of superficial and deep fibrillation at the weightbearing surface. LATERAL COMPARTMENT: Intact. MISCELLANEOUS: JOINT EFFUSION: Absent. GOMEZ'S CYST: Absent. SUBCUTANEOUS TISSUE: Unremarkable. There is a ganglion cyst in the intercondylar region between the ACL and the PCL along the cranial aspect of the intercondylar region. It measures about 1 cm. MR/MR knee RT wo con IMPRESSION: 1. Incidentally there is a ganglion cyst at the cranial aspect of the intercondylar region. No evidence of cruciate ligament tear. 2. The menisci are intact. Remainder of the chronic findings as described above. Electronically authenticated by: MELVI MCCORMICK Date: 04/18/2024 14:57
== END 2024-04-17 14:26 | disposition home or self-care (01) ==
LOC: MRI 14:29
PROVIDERS: PCP Family Medicine; Visit Provider Family Medicine
DX: M25.561 Pain in right knee (principal); G89.29 Other chronic pain; M23.91 Unspecified internal derangement of right knee; M67.461 Ganglion, right knee
CPT/HCPCS: 73721